=== PATIENT | female | born 1945 | race Caucasian/White ===

== ENCOUNTER 2020-02-22 20:07 | Outpatient (REF) | payer OTHER, SELFPAY ==
[2020-02-22 21:00] LABS: HCT 39.4 % (36.0-46.0); HGB 12.7 g/dL (11.2-15.7); MCH 28.1 pg (27.0-33.0); MCHC 32.2 % (32.0-36.0); MCV 87.2 fL (80-95); MPV 10.2 fL (8.0-11.0); Platelet Count 378 10^3/uL (130-400); RBC 4.52 10^6/uL (3.93-5.22); RDW 13.6 % (11.7-14.6); RDW-SD 43.4 fL; WBC 6.13 10^3/uL (4.4-10.8)
[2020-02-22 21:23] LABS: ALT 24 U/L (14-59); AST 14 U/L (15-37); Alkaline Phosphatase 74 U/L (46-116); Anion Gap 5.7 mmol/L (3-11); BUN 15 mg/dL (7-18); CO2 29.3 mmol/L (21.0-32.0); CREATININE 0.77 mg/dL (0.55-1.02); Calcium 9.6 mg/dL (8.5-10.1); Calculated LDL 195 mg/dL (<100); Chloride 105 mmol/L (98-107); Cholesterol 293 mg/dL (<200); Glucose 89 mg/dL (74-106); HDL Cholesterol 54 mg/dL (40-60); Potassium 3.9 mmol/L (3.5-5.1); Sodium 140 mmol/L (136-145); Total Protein 7.1 g/dL (6.4-8.2); Triglyceride 223 mg/dL (<150)
[2020-02-22 21:34] LABS: Bilirubin, Total 0.7 mg/dL (0.2-1.0)
== END 2020-02-22 20:27 ==
LOC: NCHCN 20:07
PROVIDERS: Visit Provider Family Medicine
DX: K30 Functional dyspepsia (principal); E66.8 Other obesity
CPT/HCPCS: 80053; 80061; 82306; 85027

== ENCOUNTER → 2020-03-13 09:58 | Outpatient (BNVA) | payer OTHER, SELFPAY | PROVIDERS: PCP Family Medicine; Referring Provider Family Medicine; Visit Provider Physical Therapy Assistant | DX: R13.19 Other dysphagia (principal) | CPT/HCPCS: 99213 ==

== ENCOUNTER → 2021-02-05 11:27 | Outpatient (BNVA) | payer OTHER, SELFPAY | PROVIDERS: PCP Family Medicine; Referring Provider Family Medicine; Visit Provider Physical Therapy Assistant | DX: R10.13 Epigastric pain (principal) | CPT/HCPCS: 99214 ==

== ENCOUNTER 2021-02-09 10:26 | Day surgery (SDC) | payer OTHER, SELFPAY ==
[2021-02-06 12:15] LABS: Source Nasal/Nares
[2021-02-06 16:37] LABS: COVID-19 PCR Negative (Negative)
[2021-02-09 10:35] VITALS: BP 135/88; PULSE 76; RESP 14; TEMP 36.3; O2SAT 99
--- NOTE | 2021-02-09 10:59 | W.ANESPRE ---
General Info Date of Service Date Performed: 02/09/21 Height: 5 ft Weight: 59.3 kg Body Mass Index (BMI): 25.5 Surgical Procedure: Operation Date: 02/09/21 11:50 Proposed Procedures Side Surgeon p Gastroscopy Megan Nicholson MD Actual Procedures Side Surgeon p Gastroscopy Not Applicable Megan Nicholson MD Meds Allergies and Home Medications Allergies Allergy/AdvReac Type Severity Reaction Status Date / Time No Known Allergies Allergy Verified 02/09/21 10:39 Home Medication Medication Instructions Recorded calcium carbonate 200 mg calcium 200 mg PO BID 03/11/20 (500 mg) chewable tablet flaxseed oil 5 ml MISCELLANEOUS BID 03/11/20 ibuprofen 200 mg tablet 200 mg PO Q6H PRN 03/11/20 multivitamin 1 cap PO DAILY 03/11/20 omega-3 fatty acids 1,000 mg 1,000 mg PO DAILY 03/11/20 capsule aspirin 81 mg tablet,delayed 81 mg PO DAILY 02/05/21 release Current Visit Medications: Current Medications Generic Name Dose Route Start Last Admin Trade Name Aroldoq PRN Reason Stop Dose Admin Ringer's Solution 1,000 mls @ 80 mls/hr 02/09/21 06:00 IV 03/08/21 23:59 INFUSION GILBERT IV Miscellaneous Supplies 1 each 02/09/21 06:00 Iv Access IV 03/08/21 23:59 DIRECTED GILBERT Sodium Chloride 0 ml 02/09/21 06:00 Normal Saline Flush 10 Ml Syr IV 03/08/21 23:59 PRN PRN Sodium Chloride 0 ml 02/09/21 06:00 Normal Saline 10 Ml Vial IJ 03/08/21 23:59 DIRECTED PRN Sterile Water 0 ml 02/09/21 06:00 Water,Injection,Sterile 10 Ml Vial IJ 03/08/21 23:59 DIRECTED PRN PFSH Active Problems Active Problems: Problem Status Onset Code Dyspepsia R10.13 Medical History Medical History Dyspepsia Dysphagia Menopause Overweight Pain in joint of right wrist Vitamin D deficiency Tobacco Smoking/Tobacco Use Status: Never Alcohol Alcohol Intake: former Substance Use Substance use: Never Substance use type: does not use Vital Signs and Lab Results Vital Signs Most Recent Vital Signs in EMR: Most Recent Vital Signs Temp Pulse Resp BP Pulse Ox 36.3 C L 76 14 135/88 99 02/09/21 10:35 02/09/21 10:35 02/09/21 10:35 02/09/21 10:35 02/09/21 10:35 Lab Results Blood Type / Crossmatch: No Data to Display Complete Blood Count: No Data to Display Complete Metabolic Panel: No Data to Display Liver Function Panel: No Data to Display Coagulation Panel: No Data to Display Cardiac Panel: No Data to Display Arterial Blood Gas: No Data to Display Venous Blood Gas: No Data to Display Pancreas Panel: No Data to Display Thyroid Panel: No Data to Display Infectious Disease: Coronavirus (COVID-19)(PCR) Negative (Negative) 02/06/21 09:21 02/06/21 Coronavirus 2019 Source Nasal/Nares 02/06/21 09:21 02/06/21 Blood Cultures: No Data to Display Toxicology Panel: No Data to Display Anesthesia Assessment and Plan Anesthesia History Personal History: No History of Anesthesia Complications Family History: No Family History of Anesthesia Complications Exercise Tolerance Exercise Tolerance: Metabolic Equivalents>4 Pertinent Negatives Pertinent Negatives: No Symptoms of GERD, No Major Cardiovascular Symptoms or Complaints, No Major Pulmonary Symptoms or Complaints and No History of CVA/TIA Cardiac & Pulmonary Exam Cardiac Exam: Normal S1/S2 Heart Sounds Pulmonary Exam: Clear Bilateral Breath Sounds Airway Exam Known Difficult Airway: No Mallampati Class: 2 Mouth Opening: Normal (> 3cm) Thyromental Distance: Greater than 3 cm Neck Range of Motion: Full ROM Neck Circumference: Normal Teeth Condition: Loose or Chipped ASA Classification ASA Score: ASA 2 Emergency Case?: No NPO Status NPO Status: NPO Clears >2 hours, Solids >8 hours Anesthesia Plan Resuscitation Status: Full Code Anesthesia Technique: MAC Anesthesia Airway Planned: Natural Airway Monitors Used: Standard Monitors
[2021-02-09] MEDS: Lactated Ringers 1,000 ML 80 ML IV (11:02)
[2021-02-09 11:07] VITALS: BMI 25.5
--- NOTE | 2021-02-09 11:31 | STOM_PTH ---
PATIENT: Concepcion Blount LOC: [facility] U#:[id number] AGE/SX: 75/F ROOM: RE02/09/[address]: Megan Nicholson MD : 1945 BED: DIS: 02/09/2021 SPEC #: [id number] RECD: 02/09/21 12:46 STATUS: MOISES REQ #: [id number] SANA: 02/09/21 11:[address]: Mgean Nicholson DEPT: Surgical Specimen RECD BY: Yahaira Albarado ENTERED: 02/09/21 12:47 SP TYPE: STOMACH OTHR DR: Marce Sarkar Tissues: 1 - STOMACH BIOPSY 2 - ESOPHAGUS BIOPSY Procedures: GROSS AND MICRO LEVEL 4 Comments: [id number]
--- NOTE | 2021-02-09 11:40 | ENDO_ITS ---
Date of service: 02/09/21 Time of Service: 11:40 Endoscopy Report DATE OF PROCEDURE: 02/09/21 PRE-OP DIAGNOSIS: Dysphagia, Heart Burn POST-OP DIAGNOSIS: other (Gastritis, Hiatal hernia) PROCEDURE: EGD with biopsies SURGEON: Megan Nicholson ANESTHESIA TYPE: General:No Airway (Veronica Alejandre CRNA) ESTIMATED BLOOD LOSS: 3 PATHOLOGY: other (Antrum bx, GE junction bx) COMPLICATIONS: None DISPOSITION: same day INDICATIONS: Continues with dysphagia as well as heart burn. Takes 4-5 TUMS per day to try and control her symptoms, Has had stomach issues since she was a teen. her father of stomach cancer. Procedure discussed. Risks, and benefits reviewed with her proceed with EGD under sedation FINDINGS: Mild inflammation of the stomach Hiatal hernia- 3 cm Inflammation of the GE junction and scarring PROCEDURE DESCRIPTION: After informed consent was obtained the patient was take to the procedure room and placed in a supine position. Monitors were applied and a time out was done. The patients name, date of , procedure type, allergies to medications and metal in their body was reviewed. A bite block was placed and the patient was sedated. Once sedated and comfortable the gastroscope was advanced through the oropharynx which was grossly normal into the esophagus. The proximal and mid- esophagus were normal. In the distal esophagus there was inflammation noted. The scope was advanced into the stomach and through the pylorus into the 3rd portion of the duodenum. The duodenum was noted to be normal. The scope was retracted back into the stomach and biopsies were done to rule out H. pylori. There were no ulcers. The scope was retroflexed. The cardia and fundus were noted to be normal. There was a 3 cm hiatal hernia noted. The scope was retracted back into the esophagus and biopsies were done of the GE junction to rule out [place]'s. The Z line was irregular. The GE junction was at 30 cm. The scope was removed and the patient was woken up and taken back to [facility] in stable condition. Follow up: in the office in 2 weeks
--- NOTE | 2021-02-09 11:45 | PDOC.DSDIS_ITS ---
Discharge Plan Disposition Patient Disposition: HOME Condition: Good Discharge Details Reason For Visit: EGD Attending Provider: Megan Nicholson Primary Care Provider: Marce Sarkar Home Meds and New Rx's Prescriptions: New famotidine [Acid-Pep] 20 mg tablet 20 mg PO DAILY Qty: 90 RF: 0 Continued calcium carbonate [Tums] 200 mg calcium (500 mg) tablet,chewable 200 mg PO BID RF: 0 ibuprofen 200 mg tablet 200 mg PO Q6H PRNRF: 0 flaxseed oil Oil 5 ml miscellaneous BID RF: 0 multivitamin Capsule 1 cap PO DAILY RF: 0 omega-3 fatty acids 1,000 mg capsule 1,000 mg PO DAILY RF: 0 aspirin [Adult Aspirin Regimen] 81 mg tablet,delayed release (DR/EC) 81 mg PO DAILY RF: 0 Discharge Instructions Instructions: Diet for Stomach Ulcers and Gastritis (ED), Gastritis (DC), Esophagitis (DC), GERD (Gastroesophageal Reflux Disease) (DC), Hiatal Hernia (DC) Additional Instructions: Findings: inflammation in the stomach and esophagus Small Hiatal hernia Follow up: 2 weeks in the office Please call if you develop: fevers >101.5 Nausea or Vomiting Abdominal pain that is not transient Rectal bleeding that is more then a tbsp A hard abdomen and inability to pass gas DAY SURGERY UNIT POST ENDOSCOPY INSTRUCTIONS Instructions for everyone who is given Anesthesia: For your safety, please do the following for the next 24 Hours: a. Do not drive or operate dangerous equipment b. Do not drink alcohol beverages or use any recreational drugs for the first 24 hours or while taking pain medications. The medications in your body may have a reaction that can be dangerous. c. Do not make any important decisions or sign any important papers 1. Generally there are no restrictions on your activity after a day or so has gone by, but you may feel a bit fatigued for a few days. 2. After you arrive home you may have a light meal and return to a normal diet as you can tolerate it without feeling sick to your stomach. 3. After surgery, you may feel pain or discomfort. This should be only transient, but if it persists please contact your doctor. 4. If there are any questions regarding the findings of your procedure, please feel free to contact your doctor. 6. If you are unable to contact your doctor with a problem, contact the hospital at [phone]. 9. Continue all your regular medications unless directed otherwise. I understand the above instructions and have no questions. Signature of Patient or Responsible Adult Escort Date/Time Name of Responsible Adult Escort Signature of Nurse Date/Time Referrals: Megan Nicholson MD [ [facility] STAFF PHYSICIAN] - Activity:: Activity as Tolerated Diet:: low acid
[2021-02-09 11:46] VITALS: BP 114/74; PULSE 84; RESP 16; TEMP 36.5; O2SAT 96
--- NOTE | 2021-02-09 12:13 | W.ANESPOSTOP ---
Postoperative Evaluation Date, Time and Location Date Performed: 02/09/21 Time Performed: 11:51 Patient Location: Day Surgery Unit Vital Signs Most Recent Imported Vital Signs: Most Recent Vital Signs Temp Pulse Resp BP Pulse Ox 36.5 C 84 16 114/74 96 02/09/21 11:46 02/09/21 11:46 02/09/21 11:46 02/09/21 11:46 02/09/21 11:46 Pain Score Most Recent Pain Score: Most Recent Pain Score Pain Level 0 02/09/21 11:46 Assessment Mental Status: Awake (Alert & Oriented to Patient Baseline) Airway and Respiratory Function: Patent airway with normal (patient baseline) respiratory exam Cardiovascular Function: Hemodynamically Stable Hydration Status: Adequately Hydrated Nausea & Vomiting: No Nausea or Vomiting Pain: Pt. Denies Any Pain Peripheral Nerve Block: Patient did not receive a nerve block
[2021-02-09 12:22] VITALS: BP 145/91; PULSE 69; RESP 16; TEMP 37; O2SAT 97
== END 2021-02-09 12:52 | disposition home or self-care (01) ==
PROVIDERS: PCP Family Medicine; Visit Provider Surgery
PROC: 0DJ68ZZ Inspection of Stomach, Via Natural or Artificial Opening Endoscopic (ICD-10-PCS; CPT 43235; principal; 2021-02-09 11:45)
DX: R13.10 Dysphagia, unspecified (principal); K29.70 Gastritis, unspecified, without bleeding; K44.9 Diaphragmatic hernia without obstruction or gangrene; Z80.0 Family history of malignant neoplasm of digestive organs; E55.9 Vitamin D deficiency, unspecified; K31.89 Other diseases of stomach and duodenum; K21.00 Gastro-esophageal reflux disease with esophagitis, without bleeding
CPT/HCPCS: 43239; 87635; 88305; J2001

== ENCOUNTER → 2021-02-24 10:19 | Outpatient (BNVA) | payer OTHER, SELFPAY | PROVIDERS: PCP Family Medicine; Referring Provider Family Medicine; Visit Provider Surgery | DX: Z48.815 Encounter for surgical aftercare following surgery on the digestive system (principal); R10.13 Epigastric pain | CPT/HCPCS: 99213 ==

== ENCOUNTER → 2021-04-14 09:50 | Outpatient (BNVA) | payer MEDICARE, SELFPAY | PROVIDERS: PCP Family Medicine; Referring Provider Family Medicine; Visit Provider Surgery | DX: Z48.815 Encounter for surgical aftercare following surgery on the digestive system (principal) | CPT/HCPCS: 99212 ==

== ENCOUNTER 2022-08-05 01:06 | Outpatient (CLI) | payer MEDICARE, SELFPAY ==
--- NOTE | 2022-08-05 | DI.RAD_ITS ---
Exam(s) XR KNEE RT 3V AP,LAT,NEELIMA EXAM: XR KNEE RT 3V AP,LAT,NEELIMA CLINICAL HISTORY: BILAT KNEE PAIN, M25.561. TECHNIQUE: 2D digital imaging was performed. Three views. COMPARISON: CR XR KNEE LT 3V AP,LAT,NEELIMA from 08/05/2022 FINDINGS: BONES: No acute fracture is present. No bony destructive lesion is seen. Mild periarticular spurrin g. JOINTS: The knee is normally aligned. A small joint effusion is seen. Chondrocalcinosis. SOFT TISSUE: Normal. IMPRESSION: Mild degenerative changes and chondrocalcinosis. DATA REPOSITORY: RADIATION DOSE DELIVERED:
--- NOTE | 2022-08-05 | DI.RAD_ITS ---
Exam(s) XR KNEE LT 3V AP,LAT,NEELIMA EXAM: XR KNEE LT 3V AP,LAT,NEELIMA CLINICAL HISTORY: BILAT KNEE PAIN, M25.561. TECHNIQUE: 2D digital imaging was performed. Three views. COMPARISON: No exams were available for comparison FINDINGS: BONES: No acute fracture is present. No bony destructive lesion is seen. JOINTS: The knee is normally aligned. No joint effusion is seen. SOFT TISSUE: Normal. IMPRESSION: Normal radiographs of the left knee. DATA REPOSITORY: RADIATION DOSE DELIVERED:
== END 2022-08-05 01:26 ==
LOC: DI 01:06
PROVIDERS: PCP Family Medicine; Visit Provider Nurse Practitioner Family
DX: M25.561 Pain in right knee (principal); M25.562 Pain in left knee; M25.461 Effusion, right knee; M17.11 Unilateral primary osteoarthritis, right knee; M11.261 Other chondrocalcinosis, right knee
CPT/HCPCS: 73562

== ENCOUNTER → 2023-01-10 13:48 | Outpatient (BNVA) | payer MEDICARE, SELFPAY | PROVIDERS: PCP Family Medicine; Visit Provider Student in an Organized Health Care Education/Training Program | DX: M17.11 Unilateral primary osteoarthritis, right knee (principal) | CPT/HCPCS: 99213 ==

== ENCOUNTER → 2023-11-10 13:25 | Outpatient (CLI) | payer MEDICARE, SELFPAY ==
--- NOTE | 2023-11-10 | DI.RAD_ITS ---
Exam(s) XR FOOT LT COMPLETE XR ANKLE LT COMPLETE EXAM: XR FOOT LT COMPLETE and XR ankle LT complete CLINICAL HISTORY: PAIN LEFT FOOT M79.672. TECHNIQUE: 2D digital imaging was performed of the left ankle and foot. Six images were obtained. AP, oblique and lateral views were obtained. COMPARISON: No previous for comparison. FINDINGS: BONES: No acute fracture is present. No bony destructive lesion is seen. There is enthesophyte at the posterior calcaneus. JOINTS: No dislocation present. SOFT TISSUE: Normal. IMPRESSION: No acute fracture or dislocation. DATA REPOSITORY: RADIATION DOSE DELIVERED:
== END ==
PROVIDERS: PCP Family Medicine; Visit Provider Physician Assistant Medical
DX: M25.572 Pain in left ankle and joints of left foot (principal)
CPT/HCPCS: 73610; 73630

== ENCOUNTER → 2024-03-13 13:35 | Outpatient (BNVA) | payer MEDICARE, SELFPAY | PROVIDERS: PCP Family Medicine; Referring Provider Family Medicine; Visit Provider Podiatrist | DX: S93.402A Sprain of unspecified ligament of left ankle, initial encounter (principal); X58.XXXA Exposure to other specified factors, initial encounter | CPT/HCPCS: 99204 ==

== ENCOUNTER 2024-04-25 21:58 | Outpatient (REF) | payer MEDICARE, SELFPAY ==
[2024-04-25 22:07] LABS: HCT 42.2 % (36.0-46.0); HGB 13.4 g/dL (11.2-15.7); MCH 28.3 pg (27.0-33.0); MCHC 31.8 % (32.0-36.0); MCV 89 fL (80-95); MPV 9.8 fL (8.0-11.0); Platelet Count 384 10^3/uL (130-400); RBC 4.74 10^6/uL (3.93-5.22); RDW 13.7 % (11.7-14.6); RDW-SD 44.9 fL
[2024-04-25 22:19] LABS: ALT 23 U/L (14-59); AST 12 U/L (15-37); Albumin 3.8 g/dL (3.4-5.0); Alkaline Phosphatase 83 U/L (46-116); Anion Gap 8.2 mmol/L (3-11); BUN 14 mg/dL (7-18); Bilirubin, Total 0.73 mg/dL (0.2-1.0); CO2 30.8 mmol/L (21.0-32.0); CREATININE 0.8 mg/dL (0.55-1.02); Calcium 9.3 mg/dL (8.5-10.1); Calculated LDL 219 mg/dL (<100); Chloride 106 mmol/L (98-107); Cholesterol 319 mg/dL (<200); Estimated GFR 75.37 (mL/min/1.73m2); Glucose 113 mg/dL (74-106); HDL Cholesterol 59 mg/dL (40-60); Potassium 3.9 mmol/L (3.5-5.1); Sodium 145 mmol/L (136-145); Total Protein 7.2 g/dL (6.4-8.2); Triglyceride 206 mg/dL (<150)
== END 2024-04-25 21:59 | disposition home or self-care (01) ==
LOC: NCHCN 21:58
PROVIDERS: PCP Family Medicine; Visit Provider Family Medicine
DX: E78.5 Hyperlipidemia, unspecified (principal)
CPT/HCPCS: 80053; 80061; 85027

== ENCOUNTER 2024-11-07 02:00 | Outpatient (CLI) | payer MEDICARE, SELFPAY ==
--- NOTE | 2024-11-07 14:27 | DI.US_ITS ---
APPROVED REPORT EXAM: Comprehensive 2D, Doppler, and color-flow Echocardiogram Patient Location: Out-Patient Schedule Supervisor: Rola Harrington RDCS (AE) Indications: Systolic heart murmur Other Information Study Quality: Adequate Conclusion Normal left ventricular wall thickness and chamber size. Ejection fraction is 55%. Wall motion is normal Normal right ventricular size and function Both atria are normal in size There is no structural or hemodynamically significant valvular disease Wall motion Left Ventricle The left ventricle is normal size. The left ventricular systolic function is normal. The left ventricular ejection fraction is within the normal range. There is normal left ventricular wall thickness. There is normal LV segmental wall motion. There is no ventricular septal defect visualized. LVEF is 55%. Right Ventricle The right ventricle is normal size. The right ventricular systolic function is normal. Atria The left atrium size is normal. The right atrium size is normal. The interatrial septum is intact with no evidence for an atrial septal defect. Aortic Valve The aortic valve is normal in structure. Aortic valve is trileaflet. There is no aortic valvular stenosis. No aortic regurgitation is present. Mitral Valve The mitral valve is normal in structure. No evidence of mitral valve stenosis. Trace mitral regurgitation. Tricuspid Valve The tricuspid valve is normal in structure. There is no tricuspid valve stenosis. Trace tricuspid regurgitation. The RVSP is 21.6mmHg. Pulmonic Valve The pulmonary valve is normal in structure. There is no pulmonic valvular stenosis. There is no pulmonic valvular regurgitation. Great Vessels The aortic root is normal in size. The ascending aorta is normal in size. Aortic arch is normal in caliber. IVC is normal in size and collapses >50% with inspiration. Pericardium There is no pericardial effusion. 2D Dimensions IVSD d PLAX 0.77 cm F: 0.6-1.0 Ao Root d 2.39 cm F: 2.7 - 3.3 LVPW d PLAX 0.75 cm F: 0.6 - 1.0 Ao Asc Diam d 3.13 cm F: 2.3 - 3.1 LVID d PLAX 3.50 cm F: 3.8 - 5.2 LVDs 2.44 cm F: 2.2 - 3.5 LV EF Teichholz 58.6 % FS 30.23 % LV EDV (Teich) 50.9 mL LV ESV (Teich) 21.1 mL M-Mode TAPSE 2.04 cm (M/F) >1.7 Auto EF LV EDV A4C 62.0 mL LV EDV A2C 74.9 mL LV EDV BP 68.2 mL LV ESV A4C 27.8 mL LV ESV A2C 34.0 mL LV ESV BP 30.7 mL LVEF(%) A4C 55.1 % LVEF(%) A2C 54.6 % LVEF(%) BP 55.1 % LV SV A4C 34.2 ml LV SV A2C 40.9 ml LV SV BP 37.6 ml LV CO A4C 2.5 L/min LV CO A2C 2.9 L/min LV CO BP 2.7 L/min HR A4C 72.58 BPM HR A2C 70.32 BPM LV EDV Index (BP) LA Volume LA Length A4C 3.4 cm LA Length A2C 4.3 cm LA Area A4C s 7.66 cm2 LA Area A2C s 11.62 cm2 LA Vol A4C A-L 14.82 mL LA Vol A2C A-L 26.73 mL LA Vol Biplane A-L 22.5 mL LA Vol/BSA A4C A-L LA Vol/BSA A2C A-L LA Vol/BSA BP A-L 14.3 mL/m2 LA Vol A4C MOD 14.9 mL LA Vol A2C MOD 25.2 mL LA Vol BP MOD 21.6 mL LV Diastology MV E' medial 0.062 (>0.07 m/s) MV E Vmax 0.76 (0.4-1.3 m/s) MV E/E' MED 12.31 (<14) MV A Vmax 0.95 (0.4-1.3 m/s) MV E' lateral 0.082 (>0.1 m/s) E/A Ratio 0.8 MV E/E' LAT 9.23 (<14) MV E' Average 0.072 m/s MV E/E'(average) 10.55 Aortic Valve AoV Vmax 1.31 m/s LVOT Vmax 0.95 m/s AoV Peak Grad 6.9 mmHg LVOT Peak Grad 3.6 mmHg AoV Area (Vmax) 1.82 cm2 LVOT VTI 0.183 m AoV VTI 0.281 m LVOT Mean Grad 2.0 mmHg AoV Mean Dio. 1.00 m/s LVOT SV 46.06 mL AoV Mean Grad 4.4 mmHg LVOT Diam s 1.75 cm AoV Area (VTI) 1.64 cm2 AV Regurg Peak Gr. 6.87 mmHg Velocity Ratio 0.73 Mitral Valve MV DT 252 (160-240 msec) MV Vmax TIPS 0.82 m/s MV Mean Grad 1.2 (<2mmHg) MV VTI 0.235 m Pulmonary Valve PV Vmax 0.77 (0.5-1.5 m/s) RVOT Vmax 0.58 m/s PV Peak Grad 2.3 mmHg RVOT Peak Gr. 1.4 mmHg PV Mean Dio 0.56 m/s RVOT VTI 0.136 m PV Mean Grad 1.4 mmHg RVOT Mean Gr. 0.7 mmHg Tricuspid Valve RA Pressure 3.00 mmHg TR Vmax 2.15 m/s TV S' 0.12 m/s TR Peak Grad 18.5 mmHg RVSP (TR) 21.6 mmHg
== END 2024-11-07 02:20 ==
PROVIDERS: PCP Family Medicine; Visit Provider Internal Medicine Cardiovascular Disease
DX: R01.1 Cardiac murmur, unspecified (principal)
CPT/HCPCS: 93306